=== PATIENT | male | born 1960 | race Caucasian/White ===

== ENCOUNTER → 2021-11-06 | Outpatient (CLI) | payer OTHER ==
[~2021-11-06] VITALS: Ht 172.7 cm; Wt 111.0 kg
[~2021-11-06] MED LIST: ACETAMINOPHEN500 MG PO; ALENDRONATE SOD70 MG; AMITRIPTYLINE H25 M4 PO; CELEBREX 200 M200 M1; FLEXERIL; LIPITOR10 MG PO; NABUMETONE 500500 M2 PO; NEURONTIN300 MG PO; NORCO 5-325 TA1 EACH; SINUS NASAL SPR30 M1 NASAL; VITAMIN D 5050000 I1
--- NOTE | ~2021-11-06 | HPC ---
[facility] [place] [address] PAIN MANAGEMENT CONSULTATION Name: JIN MIJARES Room #: REG TACOS ChrisChris#: [id number] Admission: 11/06/21 Attend Phys: Harjinder Worrell DO Discharge: Date of : 62 Report #: [id number] THIS REPORT FOR: cc: David Barroso MD, Steven E. MD Johnson, James E. DO ~ cc: David Barroso MD DATE OF SERVICE: 11/06/2021 REFERRING PHYSICIAN: David Barroso MD CHIEF COMPLAINT: Axial back and left knee pain. HISTORY OF PRESENT ILLNESS: As you know, the patient is a pleasant 61-year-old male reporting a 20-year history of progressively worsening axial back pain. He has been dealing with pain in the lower lumbar spine for years. He has been advised he suffers from mild arthritic changes and to make adjustments in his daily lifestyle. The patient has tried these lifestyle changes, but had not noticed much in the way of improvement. He states that as he continues to age, his symptoms have progressed. He has undergone minimal treatment through his primary care team, mainly addressing the issues with recommendations of wevv-vog-yaexped medications. He has been started on hydrocodone recently for which he takes 2 tabs a day up to 4 tabs recently. He is also taking gabapentin 300 mg at night, but noticing no benefit with that medication. Due to progressively worsening symptoms, the patient was referred on to our clinic to discuss interventional treatment options. The patient is also complaining of left knee pain, which apparently has progressively worsened. The descriptions of the knee pain appeared to be related to osteoarthritis. There has been no imaging of that area. The patient reports today his pain continuous and constant. He describes the pain as a shooting, aching, throbbing, and sharp stabbing pain when describing his back pain. Pain in the knee is more of an ache, exacerbated with bending and lifting. There is no radiation of symptoms. Today, the patient places pain score at 7/10, daily averages 7/10, but worst pain has been as 9/10. The patient states the pain is exacerbated with working, lifting and bending and rotating his lumbar spine. Pain is listed within the knee with lifting, bending and squatting. This along with standing and walking long distances. He states his pain is improved only with the pain medications being provided. He has been referred to our clinic to discuss interventional treatment options to address symptoms. PAST MEDICAL HISTORY: 1. Gall bladder disease. 2. Degenerative joint disease. 3[place] [address] PAIN MANAGEMENT CONSULTATION Name: JIN MIJARES Room #: REG [facility]#: [id number] Admission: 11/06/21 Attend Phys: Harjinder Worrell DO Discharge: Date of : 62 Report #: [id number] 4. Hypertension. 5. Coronary artery disease. 6. History of postconcussive syndrome. PAST SURGICAL HISTORY: 1. Cholecystectomy. 2. Inguinal herniorrhaphy. 3. Hemorrhoidectomy. 4. Repair of a scalp laceration in 2016. SOCIAL HISTORY: The patient denies tobacco, alcohol, IV illicit drug use. He is retired, retired about 5 years ago. He is on disability income, but not in litigation regards to his pain. He is unaccompanied on today's visit. REVIEW OF SYSTEMS: Positive for fatigue and weakness, blurred and double vision, hearing loss with tinnitus, earaches with drainage, chronic sinus problems with shortness of breath with walking or lying flat, frequent and recurrent coughs, asthma, wheezing, diarrhea interspersed with constipation, abdominal pain, frequent urination, nocturia, painful burning with urination, incontinence and dribbling to urine, sexual difficulty, frequent recurrent headaches, lightheadedness and dizziness, numbness and tingling sensations, history of head injury with postconcussive syndrome, memory loss with confusion, insomnia, heat/cold intolerance, slow to heal of cuts, bleeding or bruising tendencies, enlarged glands. All other review of systems negative per 12-point review of systems other than those listed in history of present illness. Pain impact score 52/70, severe interference of daily activities secondary to pain. ALLERGIES: PENICILLIN. CURRENT MEDICATIONS: Acetaminophen 500 mg three times a day, gabapentin 300 mg p.o. at bedtime, amitriptyline 25 mg b.i.d. Sinus spray 3 times a day, hydrocodone/acetaminophen 5/325 mg t.i.d. p.r.n., atorvastatin 10 mg per day. IMAGING: MRI of lumbar spine obtained 10/07/2021 shows T12 with a right paracentral disk protrusion with mild indentation of the ventral thecal sac. No significant central canal stenosis, no significant neuroforaminal stenosis. L1-2, mild disk bulge disk osteophyte complex. No central canal or neuroforaminal stenosis, L2-3 is unremarkable. L3-4 shows only mild facet arthropathy, no central canal or neuroforaminal stenosis. L4-5 shows broad-based mild disk bulge, no central canal stenosis, mild proximal neuroforaminal narrowing bilaterally, there is facet arthropathy. L5-S1, disk bulge on covering with spondylolisthesis resulting in left greater than right neuroforaminal narrowing. No central canal stenosis. [facility] [address] [place] [address] PAIN MANAGEMENT CONSULTATION Name: JIN MIJARES Room #: [facility]#: [id number] Admission: 11/06/21 Attend Phys: Harjinder Worrell DO Discharge: Date of : 62 Report #: [id number] PHYSICAL EXAMINATION: VITAL SIGNS: Blood pressure 119/93, pulse is 83, respiratory rate 16 and unlabored. The patient is 97% on room air. Height 5 feet 8 inches tall, weight 244.6 pounds, BMI calculated at 37.2. GENERAL: Well-developed, well-nourished, well-hydrated, exogenously obese 61-year-old male appearing stated age, pain is rated today anywhere from 7-9/10. HEENT: Normocephalic, atraumatic. Pupils are equal, round and responsive. He is wearing a mask in compliance with COVID-19 regulations. LUNGS: Appear clear. No wheeze, rhonchi or rales. CARDIOVASCULAR: Regular. No appreciable gallop or rub. ABDOMEN: Soft, obese. EXTREMITIES: Show no clubbing, no cyanosis, no appreciable edema. MUSCULOSKELETAL: Lower extremity strength appears symmetrical 5/5. There is a slight giveaway strength noted with knee. Extension on the left compared to the right does cause knee pain specifically. Seated straight leg raising is negative. Supine straight leg raising is negative. ELIZABETH test is negative. Modified Gaenslen's positive for axial low back pain. Ankle clonus negative. Babinski's is negative. Gait is normal. He is able to toe walk and heel walk without complication other than increased left knee pain with this activity. Lumbar provocation testing is met with slight increase in axial back pain, no radiation of symptoms. Anterior and posterior drawer tests performed on the left and right side showed no laxity. There is intact collateral ligaments both medial and laterally, no instability. There is no gabriel crepitus with movement of the knees. Pain is elicited with standing from a seated position to a standing position on the left over the knee when compared to the right. ASSESSMENT: 1. Lumbosacral spondylosis without radiculopathy or myelopathy. 2. Facet arthropathy of lumbar spine. 3. Chronic axial back pain. 4. Left knee pain. 5. Left knee osteoarthritis. 6. Chronic intractable pain. PLAN: 1. Based on today's physical exam, the history the patient has provided, the description the patient uses in regards to pain, as well as location of symptoms, it would appear he is suffering from two different pain generators. The first being axial back symptoms related to facet arthropathy. The patient has had progressively worsening axial back pain consistent with facet arthropathy. The findings of the MRI showed no lateralizing or concerning features though there is fairly significant arthritic changes of the L5-S1 level and to a lesser degree the L4-5 level. We have discussed with the patient the treatment options we have to address this. The following was discussed with the patient today. We discussed physical therapy stretching exercises, [place] [address] PAIN MANAGEMENT CONSULTATION Name: JIN MIJARES Room #: REG TACOS Giles#: [id number] Admission: 11/06/21 Attend Phys: Harjinder Worrell DO Discharge: Date of : 62 Report #: [id number] concerted effort at weight loss. We discussed medication management adding a consistent nonsteroidal anti-inflammatory to the mix of medications he is currently taking. We discussed medial branch nerve blocks radiofrequency lesioning as a treatment approach. We also discussed surgical options though given the minor findings in his imaging study, I do not feel he is a candidate for surgery at this point. After reviewing risks and benefits of all proposed treatment options, the patient chose to make adjustments in medication management initially, if this is unsuccessful with the alleviating symptoms moving on with medial branch nerve blocks and radiofrequency lesioning. 2. The patient was provided a prescription of nabumetone 500 mg dose one tab p.o. t.i.d. I have recommended that he take the medication with meals; breakfast, lunch and dinner would be most appropriate. I have given the patient #90 tablets with 2 refills, essentially 3 months' worth of medication. He will watch for side effects of dyspepsia, worsening blood pressure, or lower extremity edema with the use. If he notes any side effects, discontinue immediately, call for further instructions. A prescription was sent via e-scribe to local pharmacy. 3. The patient and I did discuss at length today medial branch nerve blocks and radiofrequency lesioning. We discussed how this could potentially improve his overall pain and reduce his reliance on medications. We discussed the process of medial branch nerve blocks and radiofrequency lesioning today. The patient was advised it will require authorization for the patient to undergo medial branch blocks. We will begin that process immediately. Hopeful, will have that process completed before he returns in 2 weeks. At that time if the medications are working well, we will continue the therapy; if not, we will move forward with medial branch nerve blocks; if these are then successful, then on to radiofrequency lesioning. The patient is agreeable to that plan. 4. The patient and I discussed the treatment options for his left knee pain. This appears to be related to his left knee osteoarthritis. There is no radiation of symptoms consistent with lumbar radiculopathy in this patient's case. The patient is able to localize the pain directly over the left knee. It is exacerbated with activity which rules out a neuropathic component. Weightbearing causes intensification of pain consistent with knee osteoarthritis. There is a possibility that the patient does have some meniscal injury, though this has not been evaluated. We discussed with the patient treatment options we have to address knee pain. The following was discussed with the patient in regards to this issue. We discussed physical therapy stretching exercises and leg strengthening as well as concerted effort at weight loss to address symptoms. We discussed the additional medications provided today plus the possible addition of topical agents such as Voltaren gel or Salonpas sjza-cbt-bvrtsuo treatment to address thus any issue. We also discussed intra-articular knee injections and referral to Orthopedics for possible surgical options. After reviewing risks and benefits of all proposed treatment options, the patient wished to utilize the medication provided to help with his axial back in the form of nabumetone. He will try topical agents as well and keep us apprised of its efficacy. [address] [address] PAIN MANAGEMENT CONSULTATION Name: JIN MIJARES Room #: REG CLI Tisha#: [id number] Admission: 11/06/21 Attend Phys: Harjinder Worrell DO Discharge: Date of : 62 Report #: [id number] 5. We plan to see the patient back in followup visit in approximately two weeks; at that time, review the efficacy of the medication provided today. If his symptoms are not alleviated to any great degree from an axial back pain standpoint, we would then look towards medial branch nerve blocks and possible radiofrequency lesioning. The patient is agreeable to that plan. We will bring the authorization process and hope we will have that completed before he returns in 2 weeks. 6. We wish to thank Dr. Barroso for the referral of this patient to our clinic. We will keep you apprised of his response to treatment as we addressed the two different pain generators he has presented to us today, his axial back pain due to facet arthropathy and his chronic left knee pain due to osteoarthritis. Again, we wish to thank Dr. Barroso for the opportunity to see this patient in consultation. By: [id number] Harjinder Worrell DO /nt
[2021-11-06 09:54] VITALS: BP 119/93
--- NOTE | 2021-11-06 10:53 | NUR ---
Pain Clinic Assessment: 1. History of Osteoarthritis: GENERALIZED History of Rheumatoid Arthritis: NONE 2. Height: 5 ft. 8 in. 172.7 cm. Weight: 244.6 lb. oz. 110.950 kg. Patient's BMI: 37.2 3. Vital Signs: BP: 119/93 Pulse: 83 Resp: 16 Temp: 02 Sat: 97 ECG Mon: 4. Pain Intensity: 7 TO 9 5. Fall Risk: Dizziness: Y Needs help standing or walking: N Fallen in the last 3 months: N Fall risk comments: 6. Patient on Blood Thinner: None 7. History of Hypertension: N 8. Opioid Therapy greater than 6 weeks: Y Opiate Contract Signed: 9. Risk Assessment Tool Provided: LOW-1 10. Functional Assessment Tool: / 11. Recreational Drug Use: Never Drug Type: Tobacco Use: Never Smoker Tobacco Type: Amount or Packs/day: How Many Years: Alcohol Use: Yes Frequency: Special Occasions Quant: 1
== END ==
LOC: PAIN 09:08
PROVIDERS: ATTEND Anesthesiology Pain Medicine
DX: M47.817 Spondylosis without myelopathy or radiculopathy, lumbosacral region (principal); M47.816 Spondylosis without myelopathy or radiculopathy, lumbar region; M25.562 Pain in left knee; M17.12 Unilateral primary osteoarthritis, left knee; G89.29 Other chronic pain; Z90.49 Acquired absence of other specified parts of digestive tract

== ENCOUNTER → 2021-11-19 | Outpatient (CLI) | payer OTHER ==
[~2021-11-19] VITALS: Ht 172.7 cm; Wt 109.8 kg
[~2021-11-19] MED LIST changes: +IBUPROFEN200 M1 PO
[2021-11-19 08:32] VITALS: BP 127/85
--- NOTE | 2021-11-19 08:49 | NUR ---
Pain Clinic Assessment: 1. History of Osteoarthritis: GENERALIZED History of Rheumatoid Arthritis: NONE 2. Height: 5 ft. 8 in. 172.7 cm. Weight: 242.0 lb. oz. 109.771 kg. Patient's BMI: 36.8 3. Vital Signs: BP: 127/85 Pulse: 83 Resp: 16 Temp: 02 Sat: 98 ECG Mon: 4. Pain Intensity: 6 5. Fall Risk: Dizziness: N Needs help standing or walking: N Fallen in the last 3 months: N Fall risk comments: 6. Patient on Blood Thinner: None 7. History of Hypertension: N 8. Opioid Therapy greater than 6 weeks: Y Opiate Contract Signed: 9. Risk Assessment Tool Provided: LOW-1 10. Functional Assessment Tool: / 11. Recreational Drug Use: Never Drug Type: Tobacco Use: Never Smoker Tobacco Type: Amount or Packs/day: How Many Years: Alcohol Use: Yes Frequency: Special Occasions Quant: 1
--- NOTE | 2021-11-20 09:57 | HPC ---
[facility] [place] [address] PAIN MANAGEMENT CONSULTATION Name: JIN MIJARES Room #: REG [facility].#: [id number] Admission: 11/19/21 Attend Phys: Harjinder Worrell DO Discharge: Date of : 62 Report #: [id number] THIS REPORT FOR: cc: David Barroso MD, Steven E. MD Johnson, James E. DO ~ cc: David Barroso MD DATE OF SERVICE: 11/19/2021 CHIEF COMPLAINT: Axial back pain. HISTORY OF PRESENT ILLNESS: As you know, the patient is a pleasant 61-year-old male reporting a 20-year history of progressively worsening axial back pain. He states he has been dealing with the lower lumbar spine pain for years. He has trialed cqcs-nqt-ibgrylv medication, but has noted no significant improvement. We saw the patient in consultation per the request of Dr. Barroso on 11/06/2021. At that time, he was diagnosed with lumbosacral spondylosis without radiculopathy or myelopathy and facet arthropathy of lumbar spine the source of symptoms, the patient is experiencing. He was made today's appointment to undergo the first in a series of bilateral medial branch nerve blocks. If these are then successful at alleviating symptoms for prescribed amount of time, then move forward with a second in the series. If these again provide excellent benefit, then progress towards radiofrequency lesioning of the medial branch nerves of the lumbar spine. The patient has returned today with pain score of 6/10 requesting bilateral L3, L4, L5 medial branch nerve blocks today to begin the process of possible radiofrequency lesioning to alleviate his axial back pain. The patient denies any new injury or trauma since 11/06/2021. ALLERGIES: PENICILLIN. CURRENT MEDICATIONS: See chart. SOCIAL HISTORY: The patient denies tobacco, alcohol or IV or illicit drug use. He is retired, retired about 5 years ago. He is receiving disability income, but is not in litigation in regards to pain. He is unaccompanied today. IMAGING: No new imaging available. PQRS: The patient has known arthritic changes of lumbar spine, bilateral hips, knees and hands. No rheumatoid arthritis. He is placing current pain score 6/10. He is not a fall risk, has not had a fall in last 3 months. He is not treated for hypertension, but is on chronic opioids, has a low opioid addiction potential based on assessment tool. Pain impact is 52/70, severe interference of daily activities secondary to pain. PHYSICAL EXAMINATION: [address] [address] PAIN MANAGEMENT CONSULTATION Name: JIN MIJARES Room #: REG [facility]#: [id number] Admission: 11/19/21 Attend Phys: Harjinder Worrell DO Discharge: Date of : 62 Report #: [id number] VITAL SIGNS: Blood pressure 127/85, pulse 83, respiratory rate 16 and unlabored. The patient 98% on room air. Height 5 feet 8 inches tall, weight 242 pounds, BMI calculated 36.8. GENERAL: Well-developed, well-nourished, well-hydrated exogenously obese 61-year-old male, appearing stated age, pain is rated today 6/10. HEENT: Normocephalic, atraumatic. Pupils equal, round. He is wearing a mask in compliance with COVID-19 regulations. EXTREMITIES: Show no clubbing, no cyanosis, no edema. MUSCULOSKELETAL: Lower extremity strength is symmetrical, 5/5, intact to light touch from L1 through S2 dermatomes. Seated straight leg raising is negative as is supine straight leg raising. Sis's test is negative. Modified Gaenslen's positive for some axial low back pain. Lumbar provocation testing is met with increasing axial back symptoms, mainly with rotation and lateral flexion. ASSESSMENT: 1. Lumbosacral spondylosis without radiculopathy or myelopathy. 2. Facet arthropathy of lumbar spine. 3. Chronic axial back pain. 4. Chronic intractable pain. PLAN: 1. The patient returns today in followup visit to undergo medial branch nerve blocks of the lumbar spine. If these are successful, then move forward with a second in the series 2 weeks later. If again these are improved the symptoms for prescribed amount of time then radiofrequency lesioning would be recommended. He returns today for the first in a series of medial branch nerve blocks. The patient has been advised risks and benefits of the procedure, states understood and wished to proceed. 2. No medication changes made at today's visit. The patient will continue current medical therapy as prior prescribed. 3. The patient will return in 2 weeks. At that time, we will review efficacy of the treatment and determine if next in the series of diagnostic blocks would be recommended. PROCEDURE NOTE DESCRIPTION OF PROCEDURE: Bilateral L3, L4, L5 medial branch nerve blocks #1 in the series. After obtaining written consent, the patient was taken back to fluoroscopy suite, placed in prone position on the fluoroscopic table with pillow under abdomen to decrease lumbar lordosis. Skin overlying lumbosacral area then prepped and draped in aseptic fashion. The L4 transverse process corresponding the L3 medial branch nerve and the L5 transverse process corresponding the L4 medial branch nerve were visualized under AP fluoroscopy. Skin and subcutaneous tissue overlying target site injection was then anesthetized with 1 mL of 1% [address] [place] [address] PAIN MANAGEMENT CONSULTATION Name: DYLLANJIN Justine Room #: REG [facility]#: [id number] Admission: 11/19/21 Attend Phys: Harjinder Worrell DO Discharge: Date of : 62 Report #: [id number] preservative-free lidocaine. A 22-gauge 3-1/2 inch spinal needles with bent tips were advanced under fluoroscopic guidance using a superior, inferior, lateral to medial approach to the dorsal, superior, and medial aspect to the base of transverse processes. Marion were then directed caudad to reach target location. Oblique view facilitated needle placement with properly positioned needles within the middle of the "eye" of the Gustavo dog for each of the medial branch blocks. At each site, needles rested on periosteum. After negative aspiration for heme or cerebrospinal fluid, 1 mL of bupivacaine 0.5% was injected slowly to avoid forcing the solution away from the sites. Marion were then removed. The L5 dorsal ramus block both on the left and right side was performed using a slightly oblique approach under fluoroscopic guidance, placing the needle within the groove between the sacral ala and the superior articular process of S1. Marion rested on periosteum. After negative aspiration for heme or cerebrospinal fluid, 1 mL of bupivacaine 0.5% was injected slowly. Needle retracted correction, flushed with 1 mL of 1% lidocaine and removed. Sterile bandage placed over each of the injection sites. The patient tolerated the procedure well, carefully escorted to recovery room in stable condition. No apparent complications. VAS before procedure was rated at a 6/10, VAS prior to discharge home was rated at 0/10. <ELECTRONICALLY SIGNED> By: Harjinder Worrell DO 11/20/21 [id number] Harjinder Worrell DO /nt
== END | disposition home or self-care (01) ==
LOC: PAIN 08:18
PROVIDERS: ATTEND Anesthesiology Pain Medicine
DX: M47.817 Spondylosis without myelopathy or radiculopathy, lumbosacral region (principal); M47.816 Spondylosis without myelopathy or radiculopathy, lumbar region; M54.9 Dorsalgia, unspecified; G89.29 Other chronic pain; M19.90 Unspecified osteoarthritis, unspecified site; Z98.890 Other specified postprocedural states; Z79.891 Long term (current) use of opiate analgesic; Z79.899 Other long term (current) drug therapy; Z88.0 Allergy status to penicillin

== ENCOUNTER → 2021-12-03 | Outpatient (CLI) | payer OTHER ==
[~2021-12-03] VITALS: Ht 172.7 cm; Wt 109.3 kg
[~2021-12-03] MED LIST changes: +ATIVAN1 M1 PO
--- NOTE | 2021-12-03 09:05 | NUR ---
Pain Clinic Assessment: 1. History of Osteoarthritis: GENERALIZED History of Rheumatoid Arthritis: NONE 2. Height: ft. in. cm. Weight: lb. oz. kg. Patient's BMI: 3. Vital Signs: BP: Pulse: Resp: Temp: 02 Sat: ECG Mon: 4. Pain Intensity: 4 5. Fall Risk: Dizziness: Needs help standing or walking: Fallen in the last 3 months: Fall risk comments: 6. Patient on Blood Thinner: None 7. History of Hypertension: N 8. Opioid Therapy greater than 6 weeks: Y Opiate Contract Signed: 9. Risk Assessment Tool Provided: LOW-1 10. Functional Assessment Tool: 52/ 11. Recreational Drug Use: Never Drug Type: Tobacco Use: Never Smoker Tobacco Type: Amount or Packs/day: How Many Years: Alcohol Use: Yes Frequency: Special Occasions Quant: 1
[2021-12-03 09:18] VITALS: BP 143/92
--- NOTE | 2021-12-03 09:18 | NUR ---
Pain Clinic Assessment: 1. History of Osteoarthritis: GENERALIZED History of Rheumatoid Arthritis: NONE 2. Height: 5 ft. 8 in. 172.7 cm. Weight: 241.0 lb. oz. 109.317 kg. Patient's BMI: 36.7 3. Vital Signs: BP: 143/92 Pulse: 105 Resp: 16 Temp: 02 Sat: 98 ECG Mon: 4. Pain Intensity: 4 5. Fall Risk: Dizziness: N Needs help standing or walking: N Fallen in the last 3 months: N Fall risk comments: 6. Patient on Blood Thinner: None 7. History of Hypertension: N 8. Opioid Therapy greater than 6 weeks: Y Opiate Contract Signed: 9. Risk Assessment Tool Provided: LOW-1 10. Functional Assessment Tool: 11. Recreational Drug Use: Never Drug Type: Tobacco Use: Never Smoker Tobacco Type: Amount or Packs/day: How Many Years: Alcohol Use: Yes Frequency: Special Occasions Quant: 1
--- NOTE | 2021-12-03 13:00 | HPC ---
[facility] [address] [place] [address] PAIN MANAGEMENT CONSULTATION Name: JIN MIJARES [facility] [id number] Admission: 12/03/21 Attend Phys: Harjinder Worrell DO Discharge: Date of : 62 Report #: [id number] THIS REPORT FOR: cc: David Barroso MD, Steven E. MD Johnson, James E. DO ~ cc: David Barroso MD DATE OF SERVICE: 12/03/2021 CHIEF COMPLAINT: Axial back pain. HISTORY OF PRESENT ILLNESS: As you know, the patient is a pleasant 61-year-old male reporting a 20-year history of progressively worsening axial back pain. We saw the patient in consultation per the request of primary care physician where he was diagnosed with lumbar facet arthropathy. We offered choices to treat his symptoms. The patient chose to begin with medial branch nerve blocks and radiofrequency lesioning. He has undergone the first in a series of medial branch blocks, which provided 100% improvement in overall pain. This lasted for almost seven hours before recurrence of symptoms, which is consistent with the medication utilized in the initial medial branch blocks. He returns today in followup visit to undergo next in the series of medial branch blocks. He is placing pain today at a level of 4/10. He has had no new injuries, no new traumas that may have led to symptom reoccurrence. There have been no changes in the patient's medication management that would preclude him from undergoing the medial branch blocks today. ALLERGIES: PENICILLIN. CURRENT MEDICATIONS: See chart. SOCIAL HISTORY: The patient denies tobacco, alcohol or IV or illicit drug use. He is retired, retired about 5 years ago. He is unaccompanied today. IMAGING: No new imaging available. PQRS: The patient has known arthritic changes of lumbar spine, bilateral hips, knees and hands. No rheumatoid arthritis. He is placing pain intensity today 4/10. He is not a fall risk, has not had a fall in last 3 months. He is treated for hypertension, but is on no blood thinners. He is on chronic opioids, has a low opiate addiction potential based on our assessment tool. Pain impact is high, 40/70, moderate interference of daily activities secondary to pain. PHYSICAL EXAMINATION: VITAL SIGNS: Blood pressure 143/92, pulse 105, respiratory rate 16 and unlabored. The patient is 98% on room air. Height 5 feet 8 inches tall, weight [facility] [address] [place] [address] PAIN MANAGEMENT CONSULTATION Name: DYLLANJIN Justine [facility] [id number] Admission: 12/03/21 Attend Phys: Harjinder Worrell DO Discharge: Date of : 62 Report #: [id number] 241 pounds, BMI calculated 36.7. GENERAL: Well-developed, well-nourished, well-hydrated exogenously obese 61-year-old male, appearing stated age, pain is rated today 4/10. HEENT: Normocephalic, atraumatic. He is wearing a mask in compliance with COVID-19 regulations and hospital policies. EXTREMITIES: Show no clubbing, no cyanosis, no edema. MUSCULOSKELETAL: Lower extremity strength remains symmetrical 5/5. Intact to light touch from L1 through S2 dermatomes. Seated straight leg raising negative. Supine straight leg raising negative. Modified Gaenslen's positive for axial back pain. Lumbar provocation testing is once again met with axial back symptoms. ASSESSMENT: 1. Lumbosacral spondylosis without radiculopathy or myelopathy. 2. Facet arthropathy of lumbar spine. 3. Chronic axial back pain. 4. Chronic intractable pain. PLAN: 1. The patient returns today in followup visit to undergo the second in the series of medial branch blocks. He received almost 100% improvement in overall pain lasting for 7 hours with the injections provided at our last visit, which is consistent with the medication utilized. We are pleased to see he has done well. He returns today to undergo the second in the series of medial branch blocks. If these are then successful at alleviating symptoms for greater than 70% improvement for at least a couple of hours, we would then recommend moving forward with radiofrequency lesioning of the medial branch nerves of the lumbar spine. The patient is agreeable with plan. He has been advised risks and benefits of the medial branch blocks to be performed today, states understood and wished to proceed. 2. The patient has a significant amount of anxiety, which makes our injections quite difficult to perform under normal conditions. We are providing the patient with some Ativan for the medial branch radiofrequency lesioning planned for 2 weeks. I have given him a prescription of 1 mg tablets, #4. He is to take 1 tablet about 1/2 hour before undergoing the procedure. He can then take the second dose of medication if necessary while here at the clinic. He must have a [employer] driver to bring him to and from the clinic appointments for the medial branch blocks if he does utilize this medication. Prescriptions sent via e-scribe to local pharmacy. 3. We will see the patient back in followup visit in 2 weeks for radiofrequency lesioning of either the right or left side followed 2 weeks later for the contralateral side. PROCEDURE NOTE DESCRIPTION OF PROCEDURE: Bilateral L3, L4, L5 medial branch nerve blocks #[address] [address] PAIN MANAGEMENT CONSULTATION Name: JIN MIJARES Room #: REG [facility]#: [id number] Admission: 12/03/21 Attend Phys: Harjinder Worrell DO Discharge: Date of : 62 Report #: [id number] the series. After obtaining written consent, the patient was taken back to fluoroscopy suite, placed in prone position on the fluoroscopic table with pillow under abdomen to decrease lumbar lordosis. Skin overlying lumbosacral area then prepped and draped in aseptic fashion. The L4 transverse process corresponding the L3 medial branch nerves and the L5 transverse processes corresponding the L4 medial branch nerves were visualized under fluoroscopy. Skin and subcutaneous tissue overlying target site injection was anesthetized with 1 mL of 1% lidocaine at each site. Next, four 22-gauge 3-1/2-inch spinal needles with bent tips were advanced under fluoroscopic guidance using a superior, inferior, lateral to medial approach to the dorsal, superior and medial aspect of the base of transverse processes. [place] were then directed caudad to reach target locations. Oblique view facilitated needle placement with properly positioned needles within the middle of the "eye" of the Gustavo dog for each of the medial branch blocks. At each site, needles rested on periosteum. After negative aspiration for heme or cerebrospinal fluid, 1 mL of lidocaine 2% with 1:200,000 epinephrine was injected slowly to avoid forcing the solution away from the site of injection. [place] were then removed. The L5 dorsal ramus block both on the left and right side was performed using a slightly oblique approach under fluoroscopic guidance, placing the needle within the groove between the sacral ala and the superior articular process of S1. Needle rested on periosteum. After negative aspiration for heme or cerebrospinal fluid, 1 mL of lidocaine 2% with 1:200,000 epinephrine was injected at each site slowly to avoid forcing the solution away from the injection site. [place] were retracted and removed. Sterile bandage placed over each injection sites. The patient tolerated the procedure well, carefully escorted to recovery room in stable condition. No apparent complications. After meeting discharge criteria, the patient discharged home. <ELECTRONICALLY SIGNED> By: Harjinder Worrell DO 12/03/21 [id number] Harjinder Worrell DO /nt
== END | disposition home or self-care (01) ==
LOC: PAIN 07:56
PROVIDERS: ATTEND Anesthesiology Pain Medicine
DX: M47.817 Spondylosis without myelopathy or radiculopathy, lumbosacral region (principal); M47.26 Other spondylosis with radiculopathy, lumbar region; M54.9 Dorsalgia, unspecified; G89.29 Other chronic pain; I10 Essential (primary) hypertension; M19.90 Unspecified osteoarthritis, unspecified site; Z98.890 Other specified postprocedural states; Z79.899 Other long term (current) drug therapy; Z88.0 Allergy status to penicillin

== ENCOUNTER → 2021-12-17 | Outpatient (CLI) | payer OTHER ==
[~2021-12-17] VITALS: Ht 172.7 cm; Wt 106.5 kg
--- NOTE | ~2021-12-17 | HPC ---
[facility] [place] [address] PAIN MANAGEMENT CONSULTATION Name: JIN MIJARES Room #: REG [facility]#: [id number] Admission: 12/17/21 Attend Phys: Harjinder Worrell DO Discharge: Date of : 62 Report #: [id number] THIS REPORT FOR: cc: David Barroso MD, Steven E. MD Johnson, James E. DO ~ cc: David Barroso MD DATE OF SERVICE: 12/17/2021 CHIEF COMPLAINT: Low back pain. HISTORY OF PRESENT ILLNESS: As you know, the patient is a pleasant 61-year-old male with a 20-year history of progressively worsening axial back pain. The patient has undergone successfully medial branch blocks x2 with improvement in symptoms. The most recent provided only a limited amount of improvement. He states he was able to do some of the activities of daily living without significant pain interference. He returns today in followup visit requesting to undergo radiofrequency lesioning of the medial branch nerves on the right side with plans to undergo the left. The patient reports pain today at a level of up to 5-9/10. The patient has had no injury, no trauma or any changes in medication management since his last visit. ALLERGIES: PENICILLIN. CURRENT MEDICATIONS: See chart. SOCIAL HISTORY: The patient denies tobacco, alcohol or IV or illicit drug use. Retired about 5 years ago, unaccompanied today. IMAGING: No new imaging available. PQRS: The patient has known arthritic changes of lumbar spine, bilateral hips, knees and hands. No rheumatoid arthritis. He is placing pain intensity anywhere from 5-9/10. He is not a fall risk, has not had a fall in last 3 months. He is not treated with blood thinners. He is not on any hypertensive agents. He is on chronic opioids, has a low opioid addiction potential. Pain impact is 52 of 70, severe interference of daily activities secondary to pain. PHYSICAL EXAMINATION: VITAL SIGNS: Blood pressure 122/88, pulse 75, respiratory rate 18 and unlabored. The patient 98% on room air. Height 5 feet 8 inches tall, weight 234.8 pounds, BMI calculated 35.7. GENERAL: A well-developed, well-nourished, well-hydrated 61-year-old male, appearing stated age, pain is rated today anywhere from 5-9/10. HEENT: Normocephalic, atraumatic. Pupils are round. He is wearing a mask in compliance with COVID-[address] regulations[address] [address] PAIN MANAGEMENT CONSULTATION Name: JIN MIJARES Room #: REG [facility]#: [id number] Admission: 12/17/21 Attend Phys: Harjinder Worrell DO Discharge: Date of : 62 Report #: [id number] EXTREMITIES: Show no clubbing. No appreciable cyanosis. No appreciable edema. MUSCULOSKELETAL: Lower extremity strength is symmetrical. Muscle bulk and tone is equal and symmetrical in lower extremities. Intact to light touch from L1 through S2 dermatomes. Seated straight leg raising negative. Supine straight leg raising negative. Modified Gaenslen's positive for axial back pain. Ankle clonus negative. ASSESSMENT: 1. Lumbosacral spondylosis without radiculopathy or myelopathy. 2. Facet arthropathy of lumbar spine. 3. Chronic axial back pain. 4. Chronic intractable pain. PLAN: 1. The patient returns today in followup visit to undergo radiofrequency lesioning of medial branch nerves of the right side to be followed by the left side, 2 weeks from today. The patient reports pain level anywhere from 5-9/10. The patient has been advised risks and benefits of medial branch nerve radiofrequency ablation. He states he understood and wished to proceed. 2. No medication changes made at today's visit. The patient will continue current medical therapy as prior prescribed. 3. Plan to see the patient back in followup visit in 2 weeks. At that time, discuss the efficacy of today's radiofrequency lesioning on the right side and determine if completing the radiofrequency on the left would be necessary. PROCEDURE NOTE DESCRIPTION OF PROCEDURE: Right L3, L4, L5 medial branch radiofrequency lesioning under fluoroscopic guidance. The procedure was explained. Informed consent was obtained from the patient. The patient was informed of the risks of the procedure including infection, bleeding, nerve damage, failure to produce pain relief and postoperative discomfort lasting for several weeks. The patient was then taken to the fluoroscopy suite, placed in prone position with pillows under abdomen to decrease lumbar lordosis. Skin overlying lumbosacral area then prepped and draped in aseptic fashion. AP imaging of the lumbar spine was used to identify the L2 through L5 vertebral bodies and the sacral ala. The target locations of the right side of the L4 transverse process corresponding the L3 medial branch nerve, the L5 transverse process corresponding the L4 medial branch nerve were established. The patient was provided IV sedation, 2 mg of Versed prior to the procedure as he had difficulty with undergoing simple medial branch blocks at our last visit and his anxiety is quite elevated. Using a 27-gauge 1-1/4-inch needle, skin wheals were then placed at the junction of the transverse process and the superior articular [address] [address] PAIN MANAGEMENT CONSULTATION Name: JIN MIJARES Room #: REG [facility]#: [id number] Admission: 12/17/21 Attend Phys: Harjinder Worrell DO Discharge: Date of : 62 Report #: [id number] process using 1 mL of preservative-free 1% lidocaine at each site. We were careful to only anesthetize the skin and not the deep tissue. The radiofrequency lesioning needles were then advanced under fluoroscopic guidance using a superior, inferior, lateral to medial approach to the dorsal, superior and medial aspect of the base of transverse processes. [place] were then directed ventral, medial and caudad to reach the target locations. An oblique view facilitated needle placement with properly positioned needles within the middle of the "eye" of the Gustavo dog. At each site, needles rested on periosteum. Touching the bone initially assured the needles were not placed too deeply. Radiofrequency lesioning of the L5 medial branch nerve on the right side was performed using a superior, inferior, lateral to medial approach under fluoroscopic guidance, placing the needle within the groove between the sacral ala and the superior articular process of S1. [place] rested on periosteum. Stimulation was performed at each level once the cannulas were in position. Sensory stimulation was performed at 0.3, 0.25, and 0.36 with impedance of 240, 211 and 212 at 50 Hz for the L3, L4, L5 medial branch nerves respectively. Good stimulation of the lumbar and buttock region was elicited indicating correct alignment with the posterior primary ramus. Absence of lower motor fasciculation was noted at 3 volts, 2 Hz stimulation when testing the L3, L4, L5 medial branch nerve respectively. Following this, affirmation of disassociation between sensory and motor stimulation negative aspiration was noted for heme or cerebrospinal fluid at each level. Next, 1 mL of bupivacaine 0.5% was injected slowly to avoid forcing the solution away from the site after a 90-second delay. Lesions were performed at 80 degrees Celsius for a total of 90 seconds. After the needle tips had cooled to less than 45 degrees Celsius, 1 mL of a solution containing 1 mL 40 mg per mL, 40 mg total triamcinolone and 3 mL of bupivacaine 0.5% was injected slowly. [place] were retracted snf, flushed with 0.5 mL of bupivacaine 0.5% and removed. At the end of the procedure, the patient was purposefully able to move all 4 extremities. Sterile bandages were placed over each injection sites. The patient tolerated the procedure well, carefully escorted to recovery room in stable condition. No apparent complications. VAS before procedure rated anywhere from 5-9/10, VAS after procedure 1/10. After meeting our discharge criteria, the patient discharged home. By: [id number] Harjinder Worrell DO /ashlee
[2021-12-17 09:25] VITALS: BP 122/88
--- NOTE | 2021-12-17 09:42 | NUR ---
Pain Clinic Assessment: 1. History of Osteoarthritis: GENERALIZED History of Rheumatoid Arthritis: NONE 2. Height: 5 ft. 8 in. 172.7 cm. Weight: 234.8 lb. oz. 106.505 kg. Patient's BMI: 35.7 3. Vital Signs: BP: 122/88 Pulse: 75 Resp: 18 Temp: 02 Sat: 98 ECG Mon: 4. Pain Intensity: 5 9-10 when starts moving 5. Fall Risk: Dizziness: N Needs help standing or walking: N Fallen in the last 3 months: N Fall risk comments: 6. Patient on Blood Thinner: None 7. History of Hypertension: N 8. Opioid Therapy greater than 6 weeks: Y Opiate Contract Signed: 9. Risk Assessment Tool Provided: LOW-1 10. Functional Assessment Tool: / 11. Recreational Drug Use: Never Drug Type: Tobacco Use: Never Smoker Tobacco Type: Amount or Packs/day: How Many Years: Alcohol Use: Yes Frequency: Quant:
== END ==
LOC: PAIN 07:01
PROVIDERS: ATTEND Anesthesiology Pain Medicine
DX: M47.26 Other spondylosis with radiculopathy, lumbar region (principal); M54.50 Low back pain, unspecified; G89.28 Other chronic postprocedural pain; Z79.899 Other long term (current) drug therapy; Z88.0 Allergy status to penicillin